=== PATIENT | male | born 1995 | race American Indian/Alaskan Native ===

== ENCOUNTER 2017-11-20 17:04 | Emergency (ER) | payer SELFPAY ==
[2017-11-20] MEDS ORDERED: ADRENALIN ONE (17:16)
[2017-11-20] MEDS ORDERED: SOLU-Medrol ONE (17:16)
[2017-11-20] MEDS ORDERED: PEPCID IV ONE ×2 (17:16→17:29)
[2017-11-20] MEDS ORDERED: BENADRYL ONE (17:16)
[2017-11-20] MEDS ORDERED: ADRENALINE P/F SUB-Q ONE (17:29)
[2017-11-20] MEDS ORDERED: SOLU-Medrol IV ONE (17:29)
[2017-11-20] MEDS ORDERED: BENADRYL IV ONE (17:29)
--- NOTE | 2017-11-20 19:06 | Emergency Department Report ---
HPI - General Chief Complaint: Allergic Reaction Time Seen by Provider: 11/20/17 19:02 - HPI HPI: Patient's had an allergic reaction after eating some cashews peaches. Patient has hives all over. Patient denies any nausea vomiting or shortness of breath. Allergic reaction occurred prior to arrival. ED Past Medical Hx - Past Medical History Previous Medical History?: No - Surgical History Past Surgical History?: No - Social History Smoking Status: Current Every Day Smoker Substance Use Type: Marijuana - Medications Home Medications: Home Medications Medication Instructions Recorded Confirmed Last Taken Type Famotidine [Pepcid] 20 mg PO BID #10 tablet 11/20/17 Unknown Rx Prednisone [predniSONE 5 mg (6-Day 5 mg PO .TAPER #1 tab.ds.pk 11/20/17 Unknown Rx Pack, 21 Tabs)] ED Review of Systems ROS: Stated complaint: ALLERGIC REACTION Other details as noted in HPI Comment: All other systems reviewed and negative Physical Exam - Physical Exam Vital Signs: Vital Signs 11/20/17 17:27 Temperature 98.6 F Pulse Rate 118 H Respiratory 18 Rate Blood Pressure 163/86 O2 Sat by Pulse 98 Oximetry General: Patient is alert and oriented 3. Patient is itching all over. Cardiovascular and lung exams are within normal limits. Abdomen soft nontender. Skin exam patient has diffuse hives ED Course Vital Signs 11/20/17 17:27 Temperature 98.6 F Pulse Rate 118 H Respiratory 18 Rate Blood Pressure 163/86 O2 Sat by Pulse 98 Oximetry ED Medical Decision Making - Medical Decision Making Patient started on 0.3 of epi subcutaneous Benadryl Solu-Medrol and Pepcid and patient is feeling much improved after these meds were given. Patient be discharged home. Critical Care Time: Yes (30) Critical care attestation.: If time is entered above; I have spent that time in minutes in the direct care of this critically ill patient, excluding procedure time. ED Disposition Clinical Impression: Food allergy Allergic reaction Qualifiers: Encounter type: initial encounter Qualified Code(s): T78.40XA - Allergy, unspecified, initial encounter Disposition: DC-01 TO HOME OR SELFCARE Is pt being admited?: No Does the pt Need Aspirin: No Condition: Stable Instructions: Food Allergy (ED), Urticaria (ED) Additional Instructions: Please take [id number] Benadryl one tablet every 6 hours for the next 3 days. Prescriptions: Famotidine [Pepcid] 20 mg PO BID #10 tablet Prednisone [predniSONE 5 mg (6-Day Pack, 21 Tabs)] 5 mg PO .TAPER #1 tab.ds.pk Referrals: PRIMARY CARE, [Primary Care Provider] - 3-5 Days
[2017-11-20 19:13] VITALS: BP 142/80
== END 2017-11-20 19:11 | disposition home or self-care (01) ==
LOC: ED 17:04
DX: T78.40XA Allergy, unspecified, initial encounter (principal); F17.200 Nicotine dependence, unspecified, uncomplicated; F12.10 Cannabis abuse, uncomplicated
CPT/HCPCS: 96372; 96374; 96375; 99291; J0171; J1200; J2930